=== PATIENT | male | born 1955 | race Caucasian/White ===

== ENCOUNTER 2016-08-05 09:39 | Inpatient (IN) | payer BC ==
[2016-08-01 18:13] LABS: HEMOGLOBIN 15.2 g/dL (13.6-17.8)
[2016-08-01 18:14] LABS: HEMATOCRIT 44.9 % (40.0-51.0)
[2016-08-01 18:21] LABS: CALCIUM, SERUM 8.8 MG/DL (8.5-10.4); CHLORIDE, SERUM 103 MMOL/L (96-112); CO2 (CARBON DIOXIDE) 27 MMOL/L (24-34); CREATININE 0.79 MG/DL (0.70-1.30); GFR AFRICAN AMERICAN 113 ML/MIN (>=60); GFR NON AFRICAN AMERICAN 98 ML/MIN (>=60); SODIUM, SERUM 141 MMOL/L (135-148)
[2016-08-01 18:22] LABS: BUN (BLOOD UREA NITROGEN) 6 MG/DL (6-23); GLUCOSE, SERUM 101 MG/DL (60-99); POTASSIUM, SERUM 3.7 MMOL/L (3.5-5.3)
--- NOTE | ~2016-08-05 | OP ---
Record Of Operation [facility] [address] [place]. [address] NAME: BONIFACIO GIBBS : 55 STATUS : DIS IN PAT#: [id number] AGE: 60 ADM/REG DATE : 08/05/16 MR#: [id number] REPORT SERV DATE: 08/07/16 DICTATED BY: MAURICE LOPEZ DATE: 08/07/16 REPORT STATUS : Draft TRANSCRIBED BY: MODL DATE: 08/07/16 DATE OF PROCEDURE: 08/05/2016 PREOPERATIVE DIAGNOSES: 1. Painful retained hardware, L2-L5. 2. Pseudoarthrosis, L2-3. POSTOPERATIVE DIAGNOSES: 1. Painful retained hardware, L2-L5. 2. Pseudoarthrosis, L2-3. PROCEDURES: 1. Hardware removal, L2-L5. 2. Posterolateral spinal fusion, L2-3. SURGEON: Maurice Lopez D.O. ORTHOPEDIC SHOE MAKER: Shaheen Abel. ANESTHESIA: General. ESTIMATED BLOOD LOSS: 50 mL. INDICATIONS FOR SURGERY: A 60-year-old male, who has had a previous surgery including an oblique lateral interbody fusion technique from L2-L5. The patient has done well, but now some 14 months later, has a lot of pain in the middle of the back. When trying to investigate the reason for persistent pain, CT scan has been obtained. We see solid fusion in the interbody space at L3-4 and L4-5. We do not see any arthrodesis at L2-3. In addition, with deep palpation over the paraspinous muscles, he has significant pain, and a local injection over the hardware has given major relief of the pain indicating the hardware probably has some degree of component to the back pain. Having failed conservative care, the patient is brought to the surgery for the removal of the hardware and a posterolateral fusion. We will use a local bone graft, allograft and a small dosage of bone protein. Prior to the surgery, risks, benefits, alternatives and expectations have been explained. Consent form is signed. Please note, because of the complexity of surgery, the need to identify correct level of surgery intraoperatively as well as desire to carry out the safest most precise dissection, we feel the intraoperative navigation will be mandatory. OPERATION IN DETAIL: IV antibiotic was given and the patient was brought to the operative suite. General anesthetic including endotracheal intubation was administered. The patient was placed prone on a Pablo spine frame. Bony prominences were carefully padded. Thoracolumbar spine scrubbed with Hibiclens solution. DuraPrep was painted and sterile drapes applied. Record Of Operation [facility] [address] [place]. [address] NAME: BONIFACIO GIBBS : 55 STATUS : DIS IN PAT#: [id number] AGE: 60 ADM/REG DATE : 08/05/16 MR#: [id number] REPORT SERV DATE: 08/07/16 DICTATED BY: MAURICE LOPEZ DATE: 08/07/16 REPORT STATUS : Draft TRANSCRIBED BY: RENARD DATE: 08/07/16 A small stab wound was carried out over the right posterosuperior iliac spine. A percutaneous pin with navigational frame attached was inserted in PSIS. Intraoperative CT scan with O-arm obtained. CT information used to register the navigational system. With navigational assistance, I identified the hardware, left and right side. Initially, I carried out a small 3 cm skin incision. A blunt navigated probe was placed through the fascia muscle and docked over the hardware. Muscle dilators were inserted followed by placement of a tubular retractor attached to an arm mount table. The microscope was sterilely draped and used throughout the remainder of the procedure. Initially, I identified the hardware. I removed the set screws followed by removal of the liang followed by removal of the pedicle screws. Even though we did not see any interbody fusion at L2-3, I could not generate a lot of motion at L2-3, but because the CT scan was so convincing, I felt compelled to proceed with the posterolateral fusion. There was definitely a solid fusion at L3-4 and L4-5. I exposed the transverse processes and the outer portion of the facet joints of L2-3. These were decorticated. The wounds were irrigated. I used a combination of a fibrous form of allograft along with an extra-small dosage of bone protein, and this was packed in the posterolateral recess. The retractor was removed. I then moved to the left side, and repeated the same identical steps removing the hardware, exposing the facet joints of the transverse processes of L2-3, and placing the bone grafting material. Finally, the fascial openings were closed with a single interrupted #1 Vicryl suture. The subcutaneous tissue closed with 2-0 Vicryl sutures. 2-0 vertical mattress nylon suture used for skin closure. Sterile dressings applied. The patient returned to the supine position, awakened, extubated, and taken to recovery room in satisfactory condition having tolerated the procedure well. Sponge, needle, and instrument counts were correct. No intraoperative complications were noted. YUMIKO/RENARD Maurice Lopez D.O. / [id number]
[~2016-08-05 09:39] MED LIST: ACET500CAP PO; AMB10 PO; BENICAR HCT1 TAB PO; CIALIS2.5 MG PO; DIL4TAB PO; MEDROLPAK4 PO; METHOC500B PO; NEUR100 PO; PCET PO; ULTRAM50 PO; V5 PO; VOLT75 PO
[2016-08-06] MEDS ORDERED: OXYCOD PO (09:41)
[2016-08-06] MEDS ORDERED: METHOC500B PO (09:42)
[2016-08-06] MEDS ORDERED: ULTRAM50 PO (09:42)
== END 2016-08-06 10:13 | disposition home or self-care (01) | DRG 460 ==
LOC: SDC/OF 09:39 → PACU 14:13 → 3SO 16:05
PROVIDERS: Orthopaedic Surgery Orthopaedic Surgery of the Spine
PROC: 0SG10Z1 (ICD-10-PCS; principal; 2016-08-05 13:00)
PROC: 0SP004Z Removal of Internal Fixation Device from Lumbar Vertebral Joint, Open Approach (ICD-10-PCS; 2016-08-05 13:00)
DX: M96.0 Pseudarthrosis after fusion or arthrodesis (principal)
CPT/HCPCS: 36415; 80048; 82962; 85014; 85018; 87641; 88300; 88304; 88311; 93005; A9270-GY; J0690; J1170; J2250; J2405; J2710; J3010